=== PATIENT | male | born 1975 | race Caucasian/White ===

== ENCOUNTER 2016-05-15 08:35 | Outpatient (CLI) | payer OTHER, SELFPAY ==
[2016-05-15 09:08] LABS: #Basophils 0.1 thou/uL (0.0-0.2); #Eosinphils 0.2 thou/uL (0.0-0.7); #Monocytes 0.5 thou/uL (0.11-0.59); #Neutrophils 3.9 thou/uL (1.40-6.50); %Basophils 1.5 % (0.0-1.0); %Eosinophils 3.6 % (0.0-10.0); %Lymphocytes 29.8 % (21.0-51.0); %Monocytes 7.5 % (0.0-10.0); Hematocrit 45.9 % (42.0-52.0); Mean Platelet Volume 5.6 fL (7.4-10.4); Red Blood Cell (RBC) Count 4.96 mill/uL (4.70-6.10); White Blood Cell (WBC) Count 6.8 thou/uL (4.8-10.8)
[2016-05-15 10:39] LABS: ALT (SGPT) 32 U/L (0-55); AST (SGOT) 29 U/L (5-34); Alkaline Phosphatase 96 U/L (40-150); Anion Gap 14 mmol/L (10-20); BUN (Urea Nitrogen) 16 mg/dL (8.9-20.6); Bilirubin, Total 0.9 mg/dL (0.2-1.2); Calc. Creatinine Clearance 0 mL/min (70-130); Carbon Dioxide 26 mmol/L (22-29); Chloride 106 mmol/L (98-107); Estimated GFR-MDRD Greater than 90; Globulin 2.5 g/dL (2.4-3.5); LDL Cholesterol, Calculated 138 mg/dL; Protein, Total 6.9 g/dL (6.0-8.3)
[2016-05-15 11:20] LABS: Bilirubin Negative (Negative); Blood, Urine Negative (Negative); Glucose, Urine (Dipstick) Negative (Negative); Ketone, Urine Negative (Negative); Nitrite Negative (Negative); Protein, Urine (Dipstick) Negative (Neg-Trace)
[2016-05-15 11:37] LABS: Bacteria/HPF Rare-Few HPF (None Seen); RBC/HPF None Seen HPF (0-3); Squamous Epithelial None Seen HPF (0-3); WBC/HPF 0-3 HPF (0-3)
[2016-05-15 11:38] LABS: Methadone Not Detected (NotDetected); Methamphetamine Not Detected (NotDetected)
== END 2016-05-15 08:36 ==
LOC: NAV LAB 08:35
PROVIDERS: ATTEND Family Medicine
DX: Z00.00 Encounter for general adult medical examination without abnormal findings (principal); F90.0 Attention-deficit hyperactivity disorder, predominantly inattentive type
CPT/HCPCS: 80053; 80061; 80306; 81001; 85025

== ENCOUNTER 2019-08-03 11:20 | Emergency (ER) | payer BC ==
--- NOTE | 2019-08-03 11:48 | RAD ---
EXAM: CHEST ONE VIEW HISTORY: Chest pain COMPARISON: 10/02/2016 FINDINGS: The cardiac silhouette and pulmonary vasculature is within normal limits. The lungs are clear. The os seous structures are intact. Chest is stable compared to prior exam. IMPRESSION: No acute cardiopulmonary process.
[2019-08-03 11:53] LABS: #Basophils 0.1 thou/uL (0.0-0.2); #Eosinphils 0.1 thou/uL (0.0-0.7); #Lymphocytes 1.9 thou/uL (1.20-3.40); #Monocytes 0.5 thou/uL (0.11-0.59); #Neutrophils 5.5 thou/uL (1.40-6.50); %Basophils 1.3 % (0.0-1.0); %Eosinophils 1.3 % (0.0-10.0); %Lymphocytes 22.8 % (21.0-51.0); %Monocytes 6.7 % (0.0-10.0); Hemoglobin 15.6 g/dL (14.0-18.0); Mean Corpuscular HGB CONC 32.7 g/dL (32.0-36.0); Mean Corpuscular Hemoglobin 31.8 pg (27.0-31.0); Mean Corpuscular Volume 97.1 fL (78.0-98.0); Mean Platelet Volume 6.6 fL (7.4-10.4); Platelet Count 271 thou/uL (130-400); Red Blood Cell (RBC) Count 4.91 mill/uL (4.70-6.10); White Blood Cell (WBC) Count 8.1 thou/uL (4.8-10.8)
[2019-08-03 12:05] LABS: ALT (SGPT) 39 U/L (8-55); AST (SGOT) 40 U/L (5-34); Albumin 4.5 g/dL (3.5-5.0); Alkaline Phosphatase 94 U/L (40-110); Anion Gap 17 mmol/L (10-20); BUN (Urea Nitrogen) 13 mg/dL (8.9-20.6); Calc. Creatinine Clearance 0 mL/min (70-130); Calcium 9.5 mg/dL (7.8-10.44); Carbon Dioxide 24 mmol/L (22-29); Chloride 104 mmol/L (98-107); Estimated GFR-MDRD Greater than 90; Globulin 2.7 g/dL (2.4-3.5); Glucose 110 mg/dL (70-105); Potassium 3.7 mmol/L (3.5-5.1); Protein, Total 7.2 g/dL (6.0-8.3); Sodium 141 mmol/L (136-145)
== END 2019-08-03 13:15 | disposition home or self-care (01) ==
LOC: NAV ERS 11:20
DX: I10 Essential (primary) hypertension (principal); R07.9 Chest pain, unspecified; F90.9 Attention-deficit hyperactivity disorder, unspecified type; F17.210 Nicotine dependence, cigarettes, uncomplicated; Z79.899 Other long term (current) drug therapy
CPT/HCPCS: 71045; 80053; 84484; 85025; 93005

== ENCOUNTER 2020-01-29 07:52 | Emergency (ER) | payer BC ==
[2020-01-29] MEDS ORDERED: Aspirin Chewable 81 MG TAB ONE (08:20)
[2020-01-29 08:34] LABS: #Basophils 0.1 thou/uL (0.0-0.2); #Eosinphils 0.1 thou/uL (0.0-0.7); #Lymphocytes 1.1 thou/uL (1.20-3.40); #Monocytes 0.5 thou/uL (0.11-0.59); #Neutrophils 6.1 thou/uL (1.40-6.50); %Basophils 1.2 % (0.0-1.0); %Eosinophils 0.7 % (0.0-10.0); %Monocytes 6.8 % (0.0-10.0); %Neutrophils 77.4 % (42.0-75.0); Mean Corpuscular HGB CONC 34.9 g/dL (32.0-36.0); Mean Corpuscular Hemoglobin 32.8 pg (27.0-31.0); Mean Corpuscular Volume 94.1 fL (78.0-98.0); Mean Platelet Volume 5.1 fL (7.4-10.4); Platelet Count 301 thou/uL (130-400); RBC Distribution Width 10.6 % (11.5-14.5); Red Blood Cell (RBC) Count 4.56 mill/uL (4.70-6.10); White Blood Cell (WBC) Count 7.9 thou/uL (4.8-10.8)
--- NOTE | 2020-01-29 08:47 | RAD ---
RADIOGRAPH CHEST 1 VIEW: DATE: 01/29/2020 HISTORY: 44-year-old male with palpitations FINDINGS: There are no airspace densities, pulmonary edema, pneumothorax, or cardiomegaly. The lateral costophr enic angles are excluded from the [id number]. IMPRESSION: No acute cardiopulmonary findings.
[2020-01-29 08:49] LABS: ALT (SGPT) 54 U/L (8-55); AST (SGOT) 47 U/L (5-34); Albumin 4.6 g/dL (3.5-5.0); Alkaline Phosphatase 77 U/L (40-110); Anion Gap 18 mmol/L (10-20); BUN (Urea Nitrogen) 19 mg/dL (8.9-20.6); Calc. Creatinine Clearance 0 mL/min (70-130); Calcium 8.7 mg/dL (7.8-10.44); Carbon Dioxide 22 mmol/L (22-29); Chloride 102 mmol/L (98-107); Estimated GFR-MDRD 84; Globulin 2.9 g/dL (2.4-3.5); Glucose 108 mg/dL (70-105); Lipase 10 U/L (8-78); Potassium 3.7 mmol/L (3.5-5.1); Protein, Total 7.5 g/dL (6.0-8.3); Sodium 138 mmol/L (136-145)
[2020-01-29 09:14] LABS: Amphetamine Not Detected (NotDetected); Barbiturates Screen Not Detected (NotDetected); Benzodiazepine Screen Not Detected (NotDetected); Cocaine Metabolite Screen Not Detected (NotDetected); Medtox Control Line Valid? VALID (VALID); Methadone Not Detected (NotDetected); Methamphetamine Not Detected (NotDetected); Opiate Screen Not Detected (NotDetected); Oxycodone Screen Not Detected (NotDetected); Phencyclidine (PCP) Not Detected (NotDetected); THC/Cannabinoid Screen Not Detected (NotDetected); Tricyclic Screen Not Detected (NotDetected)
[2020-01-29 09:31] LABS: Troponin I Less than 0.010 ng/mL (< 0.028)
== END 2020-01-29 10:10 | disposition home or self-care (01) ==
LOC: NAV ERS 07:52
DX: R00.2 Palpitations (principal); M25.512 Pain in left shoulder; F90.9 Attention-deficit hyperactivity disorder, unspecified type; Z87.891 Personal history of nicotine dependence
CPT/HCPCS: 36415; 71045; 80053; 80306; 83690; 84443; 84484; 85025; 93005

== ENCOUNTER 2020-02-08 01:43 | Emergency (ER) | payer BC ==
[2020-02-08 02:12] LABS: #Basophils 0.1 thou/uL (0.0-0.2); #Eosinphils 0.1 thou/uL (0.0-0.7); #Lymphocytes 2.3 thou/uL (1.20-3.40); #Monocytes 0.6 thou/uL (0.11-0.59); #Neutrophils 3.8 thou/uL (1.40-6.50); %Basophils 1.3 % (0.0-1.0); %Lymphocytes 33.8 % (21.0-51.0); %Neutrophils 54.9 % (42.0-75.0); Hemoglobin 13.5 g/dL (14.0-18.0); Mean Corpuscular HGB CONC 33.1 g/dL (32.0-36.0); Mean Corpuscular Hemoglobin 32.2 pg (27.0-31.0); Mean Corpuscular Volume 97.2 fL (78.0-98.0); Mean Platelet Volume 5.9 fL (7.4-10.4); Platelet Count 265 thou/uL (130-400); RBC Distribution Width 11.3 % (11.5-14.5); Red Blood Cell (RBC) Count 4.21 mill/uL (4.70-6.10); White Blood Cell (WBC) Count 6.9 thou/uL (4.8-10.8)
[2020-02-08] MEDS ORDERED: Ondansetron PF 4 MG/2 ML Vial ONE (02:13)
[2020-02-08] MEDS ORDERED: Ketorolac Tromethamine 30 MG/ML VIAL ONE (02:13)
[2020-02-08 02:18] LABS: Bilirubin Negative (Negative); Blood, Urine Large (Negative); Clarity Cloudy (Clear); Glucose, Urine (Dipstick) Negative (Negative); Ketone, Urine 15 mg/dL (Negative); Leukocyte Negative (Negative); Nitrite Negative (Negative); Protein, Urine (Dipstick) 100 mg/dL (Neg-Trace); Urobilinogen 0.2 mg/dL (Less than 2); pH, Urine 5.5 (5.0-9.0)
[2020-02-08 02:19] LABS: RBC/HPF Greater than 50 HPF (0-3); Specific Gravity, Urine 1.027 (1.002-1.036); WBC/HPF 0-3 HPF (0-3)
[2020-02-08 02:20] LABS: Bacteria/HPF Rare-Few HPF (None Seen); Squamous Epithelial None Seen HPF (0-3)
[2020-02-08 02:28] LABS: ALT (SGPT) 73 U/L (8-55); AST (SGOT) 33 U/L (5-34); Albumin 4.2 g/dL (3.5-5.0); Alkaline Phosphatase 71 U/L (40-110); Anion Gap 14 mmol/L (10-20); BUN (Urea Nitrogen) 24 mg/dL (8.9-20.6); Bilirubin, Total 0.5 mg/dL (0.2-1.2); Calc. Creatinine Clearance 0 mL/min (70-130); Calcium 9.1 mg/dL (7.8-10.44); Carbon Dioxide 27 mmol/L (22-29); Chloride 102 mmol/L (98-107); Estimated GFR-MDRD 68; Globulin 2.5 g/dL (2.4-3.5); Glucose 108 mg/dL (70-105); Potassium 4.2 mmol/L (3.5-5.1); Protein, Total 6.7 g/dL (6.0-8.3)
[2020-02-08 02:30] LABS: Sodium 139 mmol/L (136-145)
[2020-02-08] MEDS ORDERED: Tamsulosin HCl 0.4 MG CAP ONE (03:09)
--- NOTE | 2020-02-08 08:21 | CT ---
PRELIMINARY REPORT/[facility]/EMERGENCY AFTER HOURS PROCEDURE: EXAM: CT Abdomen and Pelvis Without Intravenous Contrast CLINICAL HISTORY: Sudden onset of left flank pain. Started about 0015 and has intermittent very sharp pains with radiation into the front and into the groins at times. No Injury to the area, no lifting or pulling that may have injured the back. TECHNIQUE: Axial computed tomography images of the abdomen and pelvis without intravenous contrast. CONTRAST: None. COMPARISON: None provided. FINDINGS: LUNG BASES: No basilar airspace consolidation or pleural effusion. LIVER: Unremarkable. GALLBLADDER AND BILE DUCTS: Unremarkable. No calcified stone. No ductal dilation. PANCREAS: Unremarkable. SPLEEN: Unremarkable. ADRENAL GLANDS: Unremarkable. KIDNEYS, URETERS, AND BLADDER: The right kidney is within normal limits. There are 2 left renal calcu li, the larger measuring 3.6 mm. Mild left hydroureteronephrosis is present secondary to proximal ure teric calculus measuring 3 mm. STOMACH AND BOWEL: No obstruction. No wall thickening. No CT evidence of colitis or acute diverticuli tis. APPENDIX: Appendix is normal PERITONEUM: No free fluid. No free air. LYMPH NODES: No lymphadenopathy. REPRODUCTIVE: Unremarkable as visualized. VASCULATURE: No aortic aneurysm. ABDOMINAL WALL AND SOFT TISSUES: Fat-containing periumbilical hernia is present. BONES: No fracture or suspicious osseous abnormality. IMPRESSION: Left nephrolithiasis. Mild left hydroureteronephrosis secondary to a 3 mm proximal ureteric calculus. ELECTRONICALLY SIGNED BY: Demetra Stinson MD Feb 08, 2020 2:56:56 AM PERSONAL [facility] FINAL REPORT EMERGENT AFTER HOURS CT OF THE ABDOMEN AND PELVIS WITHOUT CONTRAST: FINDINGS/IMPRESSION: I agree with the findings and impression given in the preliminary report per [facility] physici an. 1. There is a small proximal left ureteral calcification with mild left hydronephrosis. 2. There are additional nonobstructing left renal calcifications. POS: OFF
== END 2020-02-08 03:24 | disposition home or self-care (01) ==
LOC: NAV ERS 01:43
DX: N13.2 Hydronephrosis with renal and ureteral calculous obstruction (principal); F90.9 Attention-deficit hyperactivity disorder, unspecified type; Z87.891 Personal history of nicotine dependence
CPT/HCPCS: 74176; 80053; 81003; 81015; 85025; 96374; 96375; J1885; J2405